=== PATIENT | female | born 1950 | race Caucasian/White ===

== ENCOUNTER 2017-07-01 11:51 | Emergency (ER) | payer OTHER, SELFPAY ==
[2017-07-01] VITALS (7 sets, daily range): BP systolic 138–197; BP diastolic 51–95; PULSE 50–61; RESP 12–17; TEMP 36.8; O2SAT 96–99; BMI 31.8
--- NOTE | 2017-07-01 12:00 | EKG12_ITS ---
Test Reason : DIZZINESS Blood Pressure : / mmHG Vent. Rate : 052 BPM Atrial Rate : 052 BPM P-R Int : 176 ms QRS Dur : 100 ms QT Int : 478 ms P-R-T Axes : 068 019 027 degrees QTc Int : 444 ms Sinus bradycardia Anteroseptal infarct , age undetermined Abnormal ECG Confirmed by SANDRA MARTINEZ, RUBY ([id number]), acquisition editor SARA VARELA ([id number]) on 07/04/2017 1:31:41 PM Referred By: NORI Confirmed By:RUBY FLORES MD
[2017-07-01] MEDS: Ondansetron ODT 4 MG Tablet PO (12:35)
[2017-07-01] MEDS: LORazepam 2 MG/ML Syringe 0.5 MG IV (13:08)
[2017-07-01] MEDS: diazePAM 5 MG Tablet 2.5 MG PO (13:08)
[2017-07-01 15:53] LABS: Absolute Lymphocyte Count 0.99 X10^3/ul (0.83-4.51); Absolute Neutrophil Count 11.1 X10^3/uL (2.0-7.7); Basophil# 0.01 X10^3/uL; Basophil% 0.1 % (0-1); Eosinophil# 0.01 X10^3/uL; Eosinophils% 0.1 % (0-5); Hematocrit 41.6 % (37-47); Hemoglobin 13.9 g/dl (12.0-15.0); Lymphocyte # 0.99 X10^3/ul (4.0); Lymphocyte % 8.1 % (19-41); Mean Corp Hgb Conc 33.4 g/gl (32-36); Mean Corpuscular Hgb 29.8 pg (27.0-32.0); Mean Corpuscular Volume 89.1 fL (81-99); Mean Platelet Vol. 9.5 fl (6.2-12.0); Monocyte# 0.12 X10^3/uL; Neutrophil # 11.12 X10^3/uL (2.7-7.7); Neutrophil % 90.5 % (47-70); POSITIVE COUNT NO; POSITIVE DIFFERENTIAL NO; POSITIVE MORPHOLOGY NO; Platelet Count 188 K/mm3 (150-450); RBC Distribution Width CV 13.5 % (11.6-14.6); RBC Distribution Width SD 43.8 fl (35.1-43.9); Red Blood Count 4.67 M/mm3 (4.2-5.4); White Blood Count 12.3 K/mm3 (4.4-11.0)
[2017-07-01 15:57] LABS: Anion Gap 7 (5-15); BUN 28 mg/dL (7-18); BUN/Creat Ratio 22.4 RATIO (10-20); Calcium,Total 8.9 mg/dL (8.5-10.1); Chloride 107 mmol/L (98-107); Creatinine, Serum 1.25 mg/dL (0.55-1.02); EST Glomerular Filtration Rate 46 mL/min (>60); Est Glom Filt Rate - Afr Amer 55 mL/min (>60); Estimated Creatinine Clearance 37.12 ml/min; Glucose 118 mg/dL (74-106); Potassium 4.7 mmol/L (3.5-5.1); Sodium Level 141 mmol/L (136-145)
--- NOTE | 2017-07-01 16:23 | ED.DCSUM_ITS ---
- ER Visit Summary Date of Service: 07/01/17 Chief Complaint: Acute vertigo with nausea and vomiting History of Present Illness: The patient is a 67 F who awoke this morning and when she rolled to get out of bed developed vertigo with nausea and subsequently vomiting. She is unable to ambulate because she is afraid to fall. She denies headache. She denies double vision, blurred vision or loss of vision. She denies trouble with speech or swallowing. She denies paresthesia, anesthesia motor weakness upper or lower extremity. She does report the spinning resolves with closing her eyes and is worse with movement. She denies any cardiac, respiratory or urologic symptoms. She denies history of vertigo in the past. There is a history of hypertension hypercholesterolemia. Physical Examination: Vital signs are remarkable for an elevated blood pressure 135/82. Heart rate is 53. EKG was obtained through nurse protocol and reveals a sinus bradycardia with decreased anterior force. Head is atraumatic normocephalic. Pupils are equal round reactive. Extraocular muscles are intact. TMs are pearly white with landmarks noted. Nares patent with no drainage. Posterior pharynx without erythema or exudate. Uvula is midline. There is no dysphonia or dysphasia. Trachea is midline. There is no stridor with auscultation of the neck. With head movement there is nystagmus. Initially is an upward deflection followed by a fast deflection to the right. Heart is regular without murmur, gallop or rub. S1 and S2 are normal. Lungs are clear to auscultation with good movement of air bilaterally. Patient is alert and oriented ?3. Motor is 5 over 5. Sensory is intact. DTRs are symmetric with no clonus or Babinski sign. Cranial 2 through 12 are intact. Cerebellar testing is normal. Mara-Hallpike maneuver was performed with reproduction of her vertigo and nystagmus with initial upward deflection followed by deflection to the right. Her symptoms were worse with her head turned to the right. Test Results: CBC is marked for white count of 12.3 otherwise unremarkable. Electro panels marked for creatinine of 1.25. This was obtained after patient failed conservative management. Emergency Department Course and Treatment: Since patient had a positive [place]- Hallpike maneuver modified Ian maneuver was performed. Patient's nystagmus and symptoms other than feeling nauseous resolved. She was treated with Zofran 4 mg ODT. When I entered the room to reassess her she had nausea and vomiting with return of her vertigo. IV was established and she received parenteral Ativan and p.o. Valium. She was reassessed again and felt better. Attempted ambulation was unsuccessful. Treatment Plan: This patient's symptoms are returned she is unable to ambulate concerned from a fall and injure herself hospitalist was paged for inpatient treatment and observation Disposition: MedSur Impression: Paroxysmal benign positional vertigo with crystal manipulation initially successful This note was generated with [employer] dictation software. It may contain incorrect words, spelling, and punctuation that were not noted in review of the chart prior to signing ED Disposition - Plan for ED Patient: Chief Complaint: Dizziness Referrals: Ismael Benítez [Primary Care Provider] -
--- NOTE | 2017-07-01 16:23 | NURSING ---
DR FELIZ FOR DR ARCOS
--- NOTE | 2017-07-01 16:47 | HP.PCM_ITS ---
Problem List (1) Hypothyroidism Status: Chronic (2) Hypertension Status: Chronic (3) Benign meningioma of brain Status: Chronic History of Present Illness Date of Admission: 07/01/17 Chief Complaint: Vertigo The patient is a 67 year old F who presents to the Emergency Room with complaints of dizziness, feeling of room spinning, nausea with emesis. Patient states this began this morning upon wakening from bed. She denies history of similar symptoms. She denies numbness, tingling, unilateral weakness. Denies slurred speech, vision changes. Patient states her gait is unsteady when walking due to vertigo. She has a past medical history of hypertension, hypothyroidism, benign meningioma, leaking valves. She states she does not follow with cardiology and previously found leaking valves have not caused her any issues. She denies other associated complaints. 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 Lives: Alone Smoking Status: Never smoker Alcohol: None Drugs: None - *Family History Maternal History Items: Heart Disease Paternal History Items: Heart Disease Review of Systems Constitutional: Denies: Chills, Fever, Weight Change HEENT: Denies: Head Aches, Sinus Congestion, Sinus Drainage Cardiovascular: Denies: Chest Pain, Palpitations Respiratory: Denies: Cough, Shortness of breath at rest, Sputum production Gastrointestinal: Denies: Abdominal Pain, Nausea, Vomiting Genitourinary: Denies: Dysuria Musculoskeletal: Denies: Joint Pain, Joint Tenderness Skin: Denies: Rash, Wounds Neurological: Reports: Balance problems, - - Dizziness, feeling of room spinning. Psychiatric: Denies: Anxiety, Depression, Homicidal Ideations, Suicidal Ideations Hematologic/ Lymphatic: Denies: Easy Bruising, Easy Bleeding VTE Information - Inpt Only VTE Present on Admission: No VTE Mechan Device Prophylaxis: None VTE Pharm Prophylaxis ordered?: Yes - Physical Exam General: Alert, Oriented x3, Cooperative, No apparent distress HEENT: Atraumatic, PERRLA, EOMI, Normocephalic Neck: Supple, No JVD, Negative Carotid Bruits Lungs: Clear to auscultation, Normal air movement Cardiovascular: Regular rate, Regular Rhythm, Normal S1, Normal S2, No murmurs Abdomen: Bowel Sounds Present, Soft, Non Tender, Non-Distended Extremities: No clubbing, No cyanosis, No edema, Capillary Refill Less than 3 Seconds Skin: No rashes, No breakdown Musculoskeletal: No Tenderness to Palpation of Joints or Extremities Neurological: Cranial nerves II-XII grossly intact, - - Positive Hallpike maneuver Psych/Mental Status: Normal Affect, Appropriate Vital Signs Temp Pulse Resp BP Pulse Ox 98.3 F 52 L 12 140/65 H 97 07/01/17 11:51 07/01/17 16:00 07/01/17 16:00 07/01/17 16:00 07/01/17 16:00 Oxygen Delivery Method Room Air Weight: 81.647 kg Body Mass Index (BMI) 31.8 Laboratory Tests Past 24 Hrs 07/01/17 07/01/17 15:15 15:15 WBC 12.3 H RBC 4.67 Hgb 13.9 Hct 41.6 MCV 89.1 MCH 29.8 MCHC 33.4 RDW 13.5 RDW Differential 43.8 Plt Count 188 MPV 9.5 Immature Gran % (Auto) 0.200 Neut % (Auto) 90.5 H Lymph % (Auto) 8.1 L [place] % (Auto) 1.0 Eos % (Auto) 0.1 Baso % (Auto) 0.1 Absolute Neuts (auto) 11.1 H Absolute Lymphs (auto) 0.99 Total Counted Not Reportable Sodium 141 Potassium 4.7 Chloride 107 Carbon Dioxide 27.0 Anion Gap 7 BUN 28 H Creatinine 1.25 H Estim Creat Clear Calc 37.12 Est GFR (MDRD) Af Amer 55 L Est GFR (MDRD) Non-Af 46 L BUN/Creatinine Ratio 22.4 H Glucose 118 H Calcium 8.9 Assessment/Plan 1. Acute vertigo-symptoms of dizziness and nausea are reproducible. Positive Hallpike maneuver. Patient received Ativan and Valium in the ER with improvement of symptoms. Begin meclizine scheduled and as needed Zofran. PT/ OT. Fall precautions. 2. Hypothyroidism-continue Synthroid regimen. Check TSH. 3. Hypertension-continue home regimen. 4. Benign meningioma-continue follow-up as outpatient. Noted to be stable in the past. 5. Reported leaking valves-does not follow with cardiology. Continue home Lasix regimen. DVT prophylaxis-Lovenox SC This patient was seen by DASHAWN Vernon under the supervision of Dr. Powers.
== END 2017-07-01 17:50 | disposition home or self-care (01) ==
PROVIDERS: Emergency Provider Emergency Medicine; Family Provider Nurse Practitioner Family; PCP Nurse Practitioner Family
DX: H81.10 Benign paroxysmal vertigo, unspecified ear (principal); I10 Essential (primary) hypertension; E78.00 Pure hypercholesterolemia, unspecified; R00.1 Bradycardia, unspecified
CPT/HCPCS: 80048; 85025; 93005; 96374; 99284; J7030; A4216

== ENCOUNTER → 2024-08-23 | Outpatient (CLI) | payer MEDICARE, SELFPAY ==
--- NOTE | 2024-08-23 13:03 | US_ITS ---
PROCEDURE: KIDNEY AND BLADDER 08/23/2024 REASON FOR EXAM: STAGE 3B CHRONIC KIDNEY DISEASE TECHNIQUE: Bilateral renal ultrasound. COMPARISON: None FINDINGS: RIGHT Kidney Size: 9.7 cm x 5.5 cm x 4.5 cm Volume: 125.94 mL Cortical Thickness (if discernible): 1.3 (>6mm is normal) There is evidence of a 1.9 cm 1.8 cm 1.7 cm cyst in the upper pole. LEFT Kidney Size: 8.5 cm x 4.1 cm x 4.8 cm Volume: 87.02 mL Cortical Thickness (if discernible): 1.2 (>6mm is normal) There is a 3 mm x 3 mm x 3 mm nonobstructive calculus in the midpole. There is a 1.1 cm x 1.2 cm x 0.8 cm complex density in the superior pole. US/Kidney and Bladder IMPRESSION: Right renal cyst. Nonobstructive right intrarenal calculus. 1.1 cm 1.2 cm x 0.8 cm complex nodule in the upper pole of the left kidney. Co rrelation with CT scan is recommended. Reading Location: [place] [id number]
== END | disposition home or self-care (01) ==
PROVIDERS: PCP Nurse Practitioner Family; Referring Provider Internal Medicine Nephrology; Visit Provider Internal Medicine Nephrology
DX: N18.32 Chronic kidney disease, stage 3b (principal)
CPT/HCPCS: 76770

== ENCOUNTER → 2025-02-27 | Outpatient (CLI) | payer MEDICARE, SELFPAY ==
--- NOTE | 2025-02-27 15:56 | MRI_ITS ---
PROCEDURE: ABDOMEN WITHOUT CONTRAST 02/27/2025 REASON FOR EXAM: UNSPECIFIED ABDOMINAL PAIN TECHNIQUE: Procedure Code: MRIABD Modality: MR Procedure: ABDOMEN WITHOUT CONTRAST Multiplanar and multisequence images were obtained. CONTRAST: None COMPARISON: Renal ultrasound, 08/23/2024 FINDINGS: Liver: Unremarkable. Biliary: Cholelithiasis. There is no intra or extrahepatic biliary ductal dilatation. Pancreas: Appears unremarkable. Spleen: Unremarkable. Adrenals: Normal. Kidneys: There is a simple Bosniak 1 cortical cyst in the interpolar region of the right kidney. There are 2 small Bosniak 1 cortical cysts in the left kidney. There are 2 small indeterminate cortical nodules in the left kidney. There is a Bosniak 2, hemorrhagic cyst in the interpolar cortex of the right kidney. There is a 12 mm in diameter predominantly cystic cortical nodule in the interpolar cortex of the left kidney. The nodule contains a mural nodule. Wrist Peritoneum / Retroperitoneum: There are no abnormal intra or retroperitoneal masses or fluid collections. Lymph Nodes: There is no lymphadenopathy identified. Major Vessels: Unremarkable. Bones: There is degenerative disc disease with spinal stenosis T12-L1 through L4-5. MRI/Abdomen without Contrast IMPRESSION: 1. Suspect Bosniak 3 lesion in the left kidney. 2. Additional benign Bosniak 1 and 2 cysts are noted in the kidneys. 3. There are 2 small indeterminate cortical nodules in the left kidney. 4. Cholelithiasis. 5. Multilevel degenerative disc disease of the thoracolumbar spine with result ant spinal stenosis. Recommendation: 1. Follow-up MR or CT abdomen with and with out contrast. 2. Follow-up cholelithiasis and degenerative disc disease as clinically indica nirmal. Reading Location: [id number]
== END | disposition home or self-care (01) ==
LOC: MRI 15:52
PROVIDERS: PCP Nurse Practitioner Family; Referring Provider Urology; Visit Provider Urology
DX: R10.9 Unspecified abdominal pain (principal)
CPT/HCPCS: 74181